=== PATIENT | male | born 1990 | race Caucasian/White ===

== ENCOUNTER 2017-05-17 02:33 | Emergency (ER) | payer OTHER ==
[~2017-05-17] VITALS: Ht 162.6 cm; Wt 72.6 kg
[2017-05-17 02:35] VITALS: BP_SYST 121
[2017-05-17 03:07] VITALS: BP_SYST 121
== END 2017-05-17 03:07 ==
LOC: SED 02:33
DX: Z02.89 Encounter for other administrative examinations (principal)